=== PATIENT | male | born 1990 | race Caucasian/White ===

== ENCOUNTER 2018-02-21 19:06 | Emergency (ER) | payer OTHER ==
[~2018-02-21] VITALS: Ht 177.8 cm; Wt 90.7 kg
[2018-02-21 19:40] LABS: CALCIUM 8.5 mg/dL (8.5-10.1); POTASSIUM 3.4 mmol/L (3.5-5.1)
[2018-02-21 19:44] LABS: URINE BILIRUBIN NEGATIVE (Negative); URINE BLOOD 2+ (Negative); URINE CLARITY CLEAR; URINE COLOR YELLOW; URINE GLUCOSE-RANDOM NEGATIVE (Negative); URINE KETONES TRACE (Negative); URINE LEUKOCYTES-REFLEX NEGATIVE (Negative); URINE NITRITE-REFLEX NEGATIVE (Negative); URINE PROTEIN NEGATIVE (Negative)
[2018-02-21 19:51] LABS: SQUAMOUS 0-3 Few /LPF (0-3); URINE WBC-REFLEX 0-5 Rare /HPF (0-5)
[2018-02-21 19:52] LABS: BACTERIA-REFLEX 1-9 Few /HPF (None Seen); CASTS None Seen /LPF (None Seen); CRYSTALS None Seen /LPF (None Seen); URINE RBC 3-10 Few /HPF (0-2)
[2018-02-21] MEDS ORDERED: NORCO 5-325 TA1 EACH PO (20:23)
[2018-02-21] MEDS ORDERED: ZOFRAN ODT4 MG PO (20:23)
[2018-02-21] MEDS ORDERED: FLOMAX0.4 MG PO (20:23)
[2018-02-21] MEDS ORDERED: IBUPROFEN 800800 M1 PO (20:23)
[2018-02-21 20:48] VITALS: BP 105/82
== END 2018-02-21 20:53 | disposition home or self-care (01) ==
LOC: M.ERS 19:06
PROVIDERS: Emergency Medicine Emergency Medical Services
DX: N20.0 Calculus of kidney (principal); R11.2 Nausea with vomiting, unspecified